=== PATIENT | male | born 1990 | race Caucasian/White ===

== ENCOUNTER 2019-06-30 09:44 | Emergency (ER) | payer OTHER, MEDICAID ==
[~2019-06-30] VITALS: Ht 170.2 cm; Wt 59.9 kg
[2019-06-30 09:47] VITALS: BP 120/92
[2019-06-30] MEDS ORDERED: METH-360 PO (10:53)
== END 2019-06-30 11:18 | disposition home or self-care (01) ==
LOC: ER 09:44
DX: S29.019A Strain of muscle and tendon of unspecified wall of thorax, initial encounter (principal); F12.90 Cannabis use, unspecified, uncomplicated; Z98.890 Other specified postprocedural states; V87.7XXA Person injured in collision between other specified motor vehicles (traffic), initial encounter; Y93.89 Activity, other specified; Y92.488 Other paved roadways as the place of occurrence of the external cause; Y99.8 Other external cause status
CPT/HCPCS: 99283